=== PATIENT | female | born 1960 | race Caucasian/White ===

== ENCOUNTER 2018-07-05 08:09 | Day surgery (SDC) | payer MEDICARE, OTHER ==
[~2018-07-05] VITALS: Ht 165.1 cm; Wt 69.5 kg
[~2018-07-05 08:09] MED LIST: AMOXICILLIN 50500 MG PO; DIFLUCAN 100MG100 MG PO; DOXYCYCLINE 10100 MG PO; FLAGYL500 MG PO; LEVAQUIN 5500 MG/TA1 PO; NORCO 325 MG-51 TAB PO; PERCOCET 325 MG1 TA2 PO; PREDNISONE20 MG PO; PROVENTIL0.09 MG/A1 IH; RT ADVAIR 228 DISKUS IH; RT SPIRIVA18 MCG IH; SINGULAIR 110 MG/TAB PO; TYLENOL 500MG500 MG PO; TYLENOL EXTRA500 M1 PO
[2018-07-05] MEDS ORDERED: 00186-0370-20 IH (08:26)
[2018-07-05] MEDS ORDERED: TYLENOL 500MG500 MG PO (08:28)
[2018-07-05 08:54] VITALS: BP 122/74; PULSE 64; TEMP 98.2
[2018-07-05 09:45] VITALS: BP 118/51; PULSE 63; TEMP 97.3
[2018-07-05 10:00] VITALS: BP 100/44; PULSE 59
[2018-07-05 10:15] VITALS: BP 122/72; PULSE 65
[2018-07-05 10:30] VITALS: BP 115/45; PULSE 62
[2018-07-05 11:00] VITALS: BP 132/84; PULSE 74
== END 2018-07-05 11:20 | disposition home or self-care (01) ==
LOC: SDCO 08:09
DX: K31.7 Polyp of stomach and duodenum (principal); K22.2 Esophageal obstruction; K44.9 Diaphragmatic hernia without obstruction or gangrene; K29.30 Chronic superficial gastritis without bleeding; J45.909 Unspecified asthma, uncomplicated; Z90.49 Acquired absence of other specified parts of digestive tract; Z90.710 Acquired absence of both cervix and uterus; Z88.0 Allergy status to penicillin; Z88.1 Allergy status to other antibiotic agents; Z88.6 Allergy status to analgesic agent
CPT/HCPCS: C1726; J2250; J3010; J7030

== ENCOUNTER → 2019-04-04 | Outpatient (CLI) | payer MEDICARE, OTHER ==
[~2019-04-04] MED LIST changes: +00186-0370-20 IH
== END ==
LOC: COL.RAD 09:42
DX: N39.0 Urinary tract infection, site not specified (principal)

== ENCOUNTER 2020-01-05 13:58 | Emergency (ER) | payer MEDICARE, OTHER ==
[~2020-01-05] VITALS: Ht 167.6 cm; Wt 61.8 kg
[2020-01-05 14:06] VITALS: BP 117/59; TEMP 98
[2020-01-05 15:09] LABS: BASO % 0.7 % (0.0-2.0); EOS # 0.2 (0.0-0.7); EOS % 2.9 % (0-4.0); GRAN % 48.1 % (42.2-75.2); HEMATOCRIT 37.4 % (37.0-47.0); HEMOGLOBIN 12.4 g/dl (12.5-16.0); LYMPH # 2.3 (1.2-3.4); LYMPH % 37.9 % (20.0-51.0); MEAN CELL VOLUME 93 fl (80.0-100.0); MEAN CORPUSCULAR HEMOGLOBIN 31 pg (27.0-31.0); MEAN CORPUSCULAR HGB CONC 33 g/dl (33.0-37.0); MEAN PLATELET VOLUME 8.4 fl (7.4-10.4); MONO # 0.6 (0.1-0.6); MONO % 10.1 % (1.7-9.3); PLATELET COUNT 265 K/mm3 (130-400); RED BLOOD COUNT 4.04 M/mm3 (4.10-5.30); REDCELL DISTRIBUTION WIDTH-CV 12.6 % (11.5-14.5)
[2020-01-05 15:18] LABS: BILIRUBIN,TOTAL 0.5 mg/dL (0.0-1.0); CREATININE, serum 0.84 (0.52-1.25); POTASSIUM 3.7 mmol/L (3.4-5.0); TOTAL PROTEIN 7.2 gm/dL (6.4-8.2)
[2020-01-05 16:30] VITALS: PULSE 68
== END 2020-01-05 16:45 | disposition home or self-care (01) ==
LOC: COL.ER 13:58
PROVIDERS: Nurse Practitioner
DX: R19.7 Diarrhea, unspecified (principal); J44.9 Chronic obstructive pulmonary disease, unspecified; Z88.1 Allergy status to other antibiotic agents; Z88.8 Allergy status to other drugs, medicaments and biological substances

== ENCOUNTER 2020-05-05 17:32 | Emergency (ER) | payer MEDICARE, OTHER ==
[~2020-05-05] VITALS: Ht 167.6 cm; Wt 61.8 kg
[2020-05-05] MEDS ORDERED: RT ADVAIR HFA 1112 G IH (18:06)
[2020-05-05 19:15] VITALS: BP 128/70; PULSE 66; TEMP 98.1
== END 2020-05-05 19:15 | disposition home or self-care (01) ==
LOC: COL.ER 17:32
DX: S50.12XA Contusion of left forearm, initial encounter (principal); J45.909 Unspecified asthma, uncomplicated; Z87.891 Personal history of nicotine dependence; Z98.51 Tubal ligation status; Z79.51 Long term (current) use of inhaled steroids; W22.8XXA Striking against or struck by other objects, initial encounter

== ENCOUNTER → 2020-05-16 | Outpatient (CLI) | payer MEDICARE, OTHER ==
[~2020-05-16] MED LIST changes: +RT ADVAIR HFA 1112 G IH
== END ==
LOC: MC.RAD 07:23
DX: Z12.31 Encounter for screening mammogram for malignant neoplasm of breast (principal)

== ENCOUNTER 2021-03-19 17:32 | Emergency (ER) | payer MEDICARE, OTHER ==
[~2021-03-19] VITALS: Ht 167.6 cm; Wt 63.6 kg
[2021-03-19 17:36] VITALS: TEMP 98
[2021-03-19 19:00] VITALS: BP 135/79; PULSE 70
== END 2021-03-19 19:00 | disposition home or self-care (01) ==
LOC: COL.ER 17:32
DX: S20.211A Contusion of right front wall of thorax, initial encounter (principal); S50.02XA Contusion of left elbow, initial encounter; J44.9 Chronic obstructive pulmonary disease, unspecified; Z88.6 Allergy status to analgesic agent; Z88.1 Allergy status to other antibiotic agents; Z88.8 Allergy status to other drugs, medicaments and biological substances; W18.09XA Striking against other object with subsequent fall, initial encounter